=== PATIENT | male | born 1985 | race Caucasian/White ===

== ENCOUNTER 2021-03-09 20:40 | Emergency (ER) | payer OTHER ==
[2021-03-09 20:47] VITALS: RESP 18
--- NOTE | 2021-03-10 00:25 | XR ---
EXAMINATION TYPE: XR chest 2V DATE OF EXAM: 03/10/2021 COMPARISON: NONE HISTORY: Cough TECHNIQUE: 2 views FINDINGS: Heart and mediastinum are normal. There are some peripheral bilateral interstitial and airs pace mild infiltrates. There is no pleural effusion. There is posterior coalescent density in the lef t lower lobe. Bony thorax is intact. IMPRESSION: Bilateral interstitial and airspace pneumonia. Normal heart.
[2021-03-10] MEDS ORDERED: SODIUM CHLORIDE 0.9% 50 ML IVPB ONE (02:15)
[2021-03-10] MEDS ORDERED: CASIRIVIMAB/IMDEVIMAB (EUA) 1,200 MG in SODIUM CHLORIDE 0.9% 100 ML IVPB ONE (02:30)
[2021-03-10] MEDS ORDERED: CASIRIVIMAB (REGN10933) (EUA) 600 MG, IMDEVIMAB (REGN10987) (EUA) 600 MG in SODIUM CHLO... IVPB ONE (03:00)
[2021-03-10] MEDS ORDERED: dexAMETHasone 2 MG TAB PO STA (04:21)
--- NOTE | 2021-03-10 04:21 | ED ---
URI HPI - General Chief Complaint: Upper Respiratory Infection Stated Complaint: antibodies Time Seen by Provider: 03/09/21 23:15 Source: patient Mode of arrival: ambulatory Limitations: no limitations - Related Data Home Medications Medication Instructions Recorded Confirmed Azithromycin [Zithromax] 500 mg PO DAILY 03/09/21 03/09/21 fluvoxaMINE MALEATE 50 mg PO BID 03/09/21 03/09/21 Previous Rx's Medication Instructions Recorded Dexamethasone 6 mg PO DAILY #7 tablet 03/10/21 Allergies Allergy/AdvReac Type Severity Reaction Status Date / Time No Known Allergies Allergy Verified 03/09/21 23:41 Review of Systems ROS Statement: Those systems with pertinent positive or pertinent negative responses have been documented in the HPI. ROS Other: All systems not noted in ROS Statement are negative. Past Medical History Past Medical History: Cancer Additional Past Medical History / Comment(s): testicular History of Any Multi-Drug Resistant Organisms: None Reported Past Surgical History: No Surgical Hx Reported Past Psychological History: No Psychological Hx Reported Smoking Status: Never smoker Past Alcohol Use History: Occasional Past Drug Use History: None Reported General Exam Limitations: no limitations Course Vital Signs 03/09/21 03/09/21 03/10/21 20:43 22:43 01:30 Temperature 99.4 F Pulse Rate 93 85 87 Respiratory 18 18 18 Rate Blood Pressure 125/57 105/62 105/58 O2 Sat by Pulse 95 96 96 Oximetry 03/10/21 03:00 Temperature Pulse Rate 90 Respiratory 18 Rate Blood Pressure 107/62 O2 Sat by Pulse 95 Oximetry Medical Decision Making - Lab Data Lab Results 03/09/21 Range/Units 20:51 Coronavirus (PCR) Detected A (Not Detectd) Disposition Clinical Impression: Pneumonia due to COVID-19 virus Disposition: HOME SELF-CARE Condition: Fair Instructions (If sedation given, give patient instructions): Coronavirus Disease 2019 (COVID-19) Prescriptions: Dexamethasone 6 mg PO DAILY #7 tablet Is patient prescribed a controlled substance at d/c from ED?: No Referrals: Sharonda Hernandez MD [Primary Care Provider] - 1-2 days
[2021-03-10 04:22] VITALS: BP 102/68; PULSE 91; TEMP 102.9
[2021-03-10] MEDS ORDERED: ACETAMINOPHEN TAB 325 MG TAB PO STA (04:23)
== END 2021-03-10 04:32 | disposition home or self-care (01) ==
LOC: EC 20:40
DX: U07.1 COVID-19 (principal); J12.82 Pneumonia due to coronavirus disease 2019; Z85.47 Personal history of malignant neoplasm of testis
CPT/HCPCS: 99283; 87635; 71046; J8540; Q0243